=== PATIENT | male | born 1950 | race Caucasian/White ===

== ENCOUNTER 2016-11-03 20:30 | Inpatient (IN) | payer OTHER, MEDICAID ==
[~2016-11-03] VITALS: Ht 160 cm; Wt 65.3 kg
[~2016-11-03 20:30] MED LIST: ASPI-1159 PO; ATOR40TA70 PO; INSU3INS6 SUBCUT; LOSA50TA20 PO; METF500T4 PO; METO-385 PO; OMEP40CA34 PO
[2016-11-03] MEDS ORDERED: KETOROLAC 60MG/2ML VIAL IM STA (22:37)
[2016-11-03] MEDS ORDERED: KETOROLAC 30MG/ML VIAL IV STA (22:37)
[2016-11-03] MEDS ORDERED: ASPIRIN 81MG TABLET PO ONE (22:45)
[2016-11-03 23:35] LABS: BASOPHILS % 0.5 % (0.0-2.0); EOSINOPHILS % 7.5 % (0.0-5.0); HEMATOCRIT. 36.8 % (42.0-52.0); LYMPHOCYTES % 12.7 % (20.0-50.0); MEAN CORPUSCULAR HEMOGLOBIN 27.6 pg (28.0-32.0); MEAN CORPUSCULAR VOLUME 84.4 fL (80.0-94.0); MONOCYTES % 4.8 % (2.0-8.0); NEUTROPHILS % 74.5 % (40.0-76.0); PLATELET 355 x1000/uL (130-400); RED BLOOD CELL COUNT 4.37 mill/uL (4.7-6.1)
[2016-11-03 23:46] LABS: D-DIMER 0.33 mg/L FEU (<0.50); INR 1.1; PROTHROMBIN TIME 11.6 sec (9.4-11.6)
[2016-11-03 23:59] LABS: CARBON DIOXIDE 25 mEq/L (21-32); CHLORIDE 100 mEq/L (98-107); ETHANOL BLOOD < 10 mg/dL
[2016-11-04 00:01] LABS: TROPONIN I 0.41 ng/mL (0.00-0.04)
[2016-11-04] MEDS ORDERED: CLOPIDOGREL 75MG TABLET PO ONE (00:15)
[2016-11-04] MEDS ORDERED: LEVOFLOXACIN 750MG PREMIX 150 ML IV ONE (00:30)
[2016-11-04 00:54] LABS: BG BASE EXCESS 2.3 mmol/L (-2.0-2.0); BG CARBOXYHEMOGLOBIN 0.4 % (0.5-1.5); BG FRACTION INSPIRED OXYGEN 28; BG HCO3 ACT 27.1 mmol/L (22.0-26.0); BG METHEMOGLOBIN 0.4 % (0.0-1.5); BG OXYHEMOGLOBIN 95.2 % (94.0-97.0); BG PCO2 42.5 mmHg (35.0-45.0); BG PH 7.422 (7.350-7.450); BG PO2 85.6 mmHg (75.0-100.0); BG SAMPLE SITE LEFT RADIAL; BG TOTAL HEMOGLOBIN 12.8 g/dL (12.0-18.0); BG VENT MODE NASAL CANNULA
[2016-11-04 05:16] LABS: CLARITY URINE CLEAR (CLEAR); COLOR URINE YELLOW (YELLOW); GLUCOSE URINE 3+ (NEGATIVE); KETONES URINE NEGATIVE (NEGATIVE); LEUKOCYTE ESTERASE URINE NEGATIVE (NEGATIVE); NITRITE URINE NEGATIVE (NEGATIVE); OCCULT BLOOD URINE NEGATIVE (NEGATIVE); PH URINE 5.5 (4.5-8.0); PROTEIN URINE NEGATIVE (NEGATIVE); SPECIFIC GRAVITY URINE 1.043 (1.005-1.030); UROBILINOGEN URINE 0.2 E.U./dL (0.2-1.0)
[2016-11-04 06:13] LABS: *AMPHETAMINES SCREEN URINE NEGATIVE (NEGATIVE); *BARBITURATES SCREEN URINE NEGATIVE (NEGATIVE); *BENZODIAZEPINES SCREEN URINE NEGATIVE (NEGATIVE); *COCAINE SCREEN URINE NEGATIVE (NEGATIVE); CANNABINOID URINE SCREEN NEGATIVE (NEGATIVE); METHADONE URINE SCREEN NEGATIVE (NEGATIVE); OPIATES URINE SCREEN NEGATIVE (NEGATIVE); PHENCYCLIDINE URINE SCREEN NEGATIVE (NEGATIVE)
[2016-11-04 10:49] VITALS: BP 125/74
[2016-11-04 10:50] VITALS: BP 125/79
[2016-11-04] MEDS ORDERED: DIPHENHYDRAMINE 50MG/ML VIAL IV PRN (11:00)
[2016-11-04] MEDS ORDERED: HYDROCODONE/ACETAMINOPHEN 5/325MG TABLET PO PRN (11:00)
[2016-11-04] MEDS ORDERED: CLONIDINE 0.1MG TABLET PO PRN (11:00)
[2016-11-04] MEDS ORDERED: ACETAMINOPHEN 325MG TABLET PO PRN (11:00)
[2016-11-04] MEDS ORDERED: ONDANSETRON HCL 4MG/2ML VIAL IV PRN (11:00)
[2016-11-04] MEDS ORDERED: IPRATROPIUM/ALBUTEROL 0.5-3(2.5)MG/3ML NEB INH PRN (11:00)
[2016-11-04 12:00] VITALS: BP 125/73
[2016-11-04] MEDS: LEVOFLOXACIN 500MG PREMIX 100 ML IV SCH (14:16)
[2016-11-04] MEDS: DILTIAZEM HCL 60MG TABLET PO SCH ×2 (14:59→21:26)
[2016-11-04 16:00] VITALS: BP 119/69
[2016-11-04] MEDS: METFORMIN HCL 500MG TABLET PO SCH (17:43)
[2016-11-04] MEDS ORDERED: METOPROLOL TARTRATE 50MG TABLET PO SCH (21:00)
[2016-11-04 21:24] VITALS: BP 105/51
[2016-11-05] VITALS: BP 118/62
[2016-11-05 05:37] VITALS: BP 113/60
[2016-11-05] MEDS: DILTIAZEM HCL 60MG TABLET PO SCH ×2 (06:30→13:58)
[2016-11-05 07:10] LABS: CREATINE KINASE MB FRACTION 6.3 ng/mL (0.5-3.6); TROPONIN I 0.39 ng/mL (0.00-0.04)
[2016-11-05 07:13] LABS: CARBON DIOXIDE 27 mEq/L (21-32); CHLORIDE 99 mEq/L (98-107); HDL CHOLESTEROL 28 mg/dL (40-59)
[2016-11-05 07:15] LABS: LDL CHOLESTEROL 88 mg/dL (5-100)
[2016-11-05 07:42] LABS: BASOPHILS % 0.4 % (0.0-2.0); EOSINOPHILS % 7.1 % (0.0-5.0); HEMATOCRIT. 36.2 % (42.0-52.0); HEMOGLOBIN. 11.6 g/dL (14.0-18.0); LYMPHOCYTES % 13.7 % (20.0-50.0); MEAN CORPUSCULAR HEMOGLOBIN 27.4 pg (28.0-32.0); MEAN CORPUSCULAR VOLUME 85.7 fL (80.0-94.0); MEAN PLATELET VOLUME 8.1 fl (7.4-10.4); MONOCYTES % 5.4 % (2.0-8.0); NEUTROPHILS % 73.4 % (40.0-76.0); PLATELET 326 x1000/uL (130-400); RED BLOOD CELL COUNT 4.22 mill/uL (4.7-6.1); RED CELL DISTRIBUTION WIDTH 15.8 % (11.6-14.6)
[2016-11-05 08:21] VITALS: BP 101/69
[2016-11-05] MEDS ORDERED: LOSARTAN POTASSIUM 50 MG TABLET PO SCH (09:00)
[2016-11-05] MEDS ORDERED: ASPIRIN 81MG EC TABLET PO SCH (09:00)
[2016-11-05] MEDS: METFORMIN HCL 500MG TABLET PO SCH ×2 (09:08→17:56)
[2016-11-05] MEDS: LEVOFLOXACIN 500MG PREMIX 100 ML IV SCH (11:55)
[2016-11-05 13:07] VITALS: BP 98/51
[2016-11-05] MEDS ORDERED: DILT60TA35 PO (16:20)
[2016-11-05] MEDS ORDERED: LEVO500T2 PO (16:20)
[2016-11-05] MEDS ORDERED: HYDR-523 PO (16:20)
[2016-11-05] MEDS ORDERED: LOSA50TA3 PO (16:24)
[2016-11-05 17:03] VITALS: BP 113/66
[2016-11-05 17:23] VITALS: BP 111/65
== END 2016-11-05 18:25 | disposition home or self-care (01) | DRG 193 ==
LOC: ER 20:30 → 7WST 23:22 → ENRESERV 11-04 09:20
PROVIDERS: ADMIT Internal Medicine; ATTEND Internal Medicine
DX: J18.9 Pneumonia, unspecified organism (principal); J96.20 Acute and chronic respiratory failure, unspecified whether with hypoxia or hypercapnia; E87.2 Acidosis; D64.9 Anemia, unspecified; E11.9 Type 2 diabetes mellitus without complications; I10 Essential (primary) hypertension; Z99.81 Dependence on supplemental oxygen; J45.909 Unspecified asthma, uncomplicated; R07.89 Other chest pain; Z79.84 Long term (current) use of oral hypoglycemic drugs; Z79.899 Other long term (current) drug therapy; Z79.4 Long term (current) use of insulin
CPT/HCPCS: 36415; 36600; 71010; 80053; 80061; 80305; 81001; 82375; 82550; 82553; 82805; 82962; 83605; 83690; 83880; 84484; 85025; 85379; 85610; 87040; 87086; 93005; 93306; 96365; 96366; 96372; 99291; 99406; G0482; J1885; J1956; J7050; J7620